=== PATIENT | male | born 1995 | race Two or more races ===

== ENCOUNTER 2016-09-01 11:50 | Emergency (ER) | payer OTHER ==
[2016-09-01] MEDS ORDERED: NS 1,000 ML IV ONE ×2 (12:13→18:04)
[2016-09-01] MEDS ORDERED: ONDANSETRON 4 MG/2 ML VIAL IVP ONE (12:13)
[2016-09-01 13:09] LABS: % IMMATURE GRANULYOCYTES 0.3 % (0.0-1.1); ABSOLUTE IMMATURE GRANULOCYTES 0.03 10^3/uL (0.00-0.10); ADD DIFF? NO; ADD MORPH? YES; ADD SCAN? NO; ATYPICAL LYMPHOCYTE FLAG 0 (0-99); FRAGMENT RBC FLAG 60 (0-99); HEMATOCRIT 29.5 % (40.0-51.0); HEMOGLOBIN 8.9 g/dL (13.7-17.5); LEFT SHIFT FLG 0 (0-99); LIPEMIA HEMOLYSIS FLAG 80 (0-99); MEAN CELL HEMOGLOBIN 20.9 pg (27.9-34.1); MEAN CELL HEMOGLOBIN CONCENTR. 30.2 g/dL (32.4-36.7); PLATELET CLUMPS FLAG 0 (0-99); PLATELET COUNT 682 10^3/uL (150-400); RED BLOOD CELL COUNT 4.25 10^6/uL (4.40-6.38); RED CELL DISTRIBUTION WIDTH 19.7 % (11.5-15.2)
[2016-09-01 13:18] LABS: MEAN CELL VOLUME 69.4 fL (81.5-99.8)
[2016-09-01 13:22] LABS: ANION GAP 17 mEq/L (8-16); CALCIUM 9.1 mg/dL (8.5-10.4); CARBON DIOXIDE 23 mEq/l (22-31); CHLORIDE 101 mEq/L (97-110); CREATININE 0.5 mg/dL (0.7-1.3); GLOMERULAR FILTRATION RATE > 60; GLUCOSE 83 mg/dL (70-100); SODIUM 141 mEq/L (134-144)
[2016-09-01 14:01] LABS: ELLIPTOCYTES 1+; HYPOCHROMIA 2+; MICROCYTES 1+; PLATELET ESTIMATE INCREASED (ADEQ); SCHISTOCYTES 1+; TARGET CELLS 1+
--- NOTE | 2016-09-01 14:24 | UCPHY ---
H & P Time Seen by Provider: 09/01/16 14:07 Patient Type: Established HPI/ROS: CHIEF COMPLAINT: Lightheaded, weakness, shaking HISTORY OF PRESENT ILLNESS: 21-year-old male presents to the urgent care with mother and father feeling lightheaded and very shaky. The patient has a history of having a total colectomy July 23, [address] Pedroza at [facility] in [place]. The patient was just discharged less than 1 week ago from [facility] and was seen most recently by his surgeon yesterday. He he had cultures taken. He had blood drawn. He presents to urgent care feeling very weak and shaky. He did not have a syncopal episode. He denies chest pain or difficulty breathing. The patient has a history of ulcerative colitis and has been on prednisone over the last 1 year. He subsequently had the total colectomy because he was unable to wean from the prednisone. He stop the prednisone 1 week ago and then apparently started having recurring symptoms and so it is a restarted the prednisone at 5 mg and he has been taking this for last 2 days. He is currently on antibiotics, Flagyl 500 mg three times daily and Rocephin 2 g q.day. He has home health. He had Clostridium difficile 1 year ago. The mother reports that his ileostomy bag has been feeling up with a lot of liquid and she is very concerned that he is now dehydrated. He has been urinating. No burning associated with urination. He did also have an abscess 3 weeks ago and had a recent CT scan on Saturday showing the abscess had resolved. REVIEW OF SYSTEMS: Constitutional: No fever, no chills. Eyes: No double or blurry vision. ENT: No sore throat. Respiratory: No cough, no shortness of breath. Cardiac: No chest pain. Gastrointestinal: Abdominal pain, no vomiting. Large output ileostomy bag. Genitourinary: No dysuria. Musculoskeletal: No neck or back pain. Skin: No rashes. Neurological: headache. Past Medical/Surgical History: Ulcerative colitis, history of total colectomy July 23, 2016 Social History: Single Smoking Status: Never smoked Physical Exam: General Appearance: Alert, no distress. Initial vital signs 37.2, heart rate 128, 110/78 Eyes: Pupils equal and round. Extraocular motions are all intact. ENT: Mouth: Mucous membranes moist. Respiratory: No wheezing, rhonchi, or rales, lungs are clear to auscultation. Cardiovascular: Regular rate and rhythm. Gastrointestinal: Healing surgical midline incision noted to have some dehiscence at the most inferior aspect over the suprapubic area. There is no drainage from the wound. Ileostomy bag noted the right lower quadrant. Mild diffuse tenderness with palpation. Normal bowel sounds. Abdomen is soft. Neurological: Alert and oriented x 3, cranial nerves II through XII grossly intact Skin: Warm and dry, no rashes. Musculoskeletal: Nontender to palpate along the cervical, thoracic or lumbar spine. Neck is supple. Extremities: Full range of motion and no peripheral edema. Psychiatric: Patient is oriented X 3, there is no agitation. Constitutional: Initial Vital Signs Temperature (C) 37.2 C 09/01/16 12:00 Heart Rate 128 H 09/01/16 12:00 Respiratory Rate 16 09/01/16 12:00 Blood Pressure 110/78 09/01/16 12:00 O2 Sat (%) 99 09/01/16 12:00 O2 Delivery Mode Room Air Allergies/Adverse Reactions: infliximab [From Remicade] Allergy (Severe, Verified 09/01/16 12:06) SOB, Rash sertraline Allergy (Severe, Verified 09/01/16 12:06) Abdominal Pain adalimumab [From Humira] Allergy (Intermediate, Verified 09/01/16 12:06) Fever mesalamine Allergy (Intermediate, Verified 09/01/16 12:06) Fever, RASH Sulfa (Sulfonamide Antibiotics) Allergy (Intermediate, Verified 09/01/16 12:06) Rash Home Medications: Medication Instructions Recorded Aspirin 09/01/16 Ativan 09/01/16 Ceftriaxone 09/01/16 Flagyl 09/01/16 Flexeril 09/01/16 Ibuprofen 09/01/16 Ondansetron 09/01/16 Oxycodone HCl 09/01/16 Prednisone 09/01/16 Remeron 09/01/16 VITAMIN D 09/01/16 Vitamin B Complex 09/01/16 Medical Decision Making ED Course/Re-evaluation: 21-year-old male with a history of colectomy presents with the large output to ileostomy bag with concerns about possible dehydration. The patient is subjective be feeling very shaky and lightheaded. The patient was in urgent care for several hours. He would received IV normal saline and upon discharge the patient did not feel much different. His heart rate remained 115-120. Laboratory studies reveal white blood cell count of 9.7. The patient is chronically anemic. Chemistries are within normal limits. Specifically normal BUN and creatinine of 11 and 0.5. Influenza was negative. Because the patient continued to feel very shaky and had not improved much after receiving IV normal saline and having some juice and some crackers to eat. I recommended admission to the hospital. The mother verbalized understanding and agreed. The patient will be admitted to Dr. Obregon at [facility] all in [place]. He will be admitted to bed #665. His mother requests to take the patient by private vehicle and not by ambulance. Differential Diagnosis: Including but not limited to dehydration, sepsis, bowel obstruction, infectious diarrhea - Data Points Laboratory Results: Laboratory Results 09/01/16 12:51 09/01/16 12:51 09/01/16 09/01/16 09/01/16 16:17 15:35 12:51 WBC RBC Hgb Hct MCV MCH MCHC RDW Plt Count MPV Neut % (Auto) Lymph % (Auto) [place] % (Auto) Eos % (Auto) Baso % (Auto) Nucleat RBC Rel Count Absolute Neuts (auto) Absolute Lymphs (auto) Absolute Monos (auto) Absolute Eos (auto) Absolute Basos (auto) Absolute Nucleated RBC Immature Gran % Immature Gran # Platelet Estimate Hypochromasia Microcytic Cells Target Cells Elliptocytes Schistocytes Smear Review By Sodium 141 mEq/L mEq/L (134-144) Potassium 4.0 mEq/L mEq/L (3.5-5.2) Chloride 101 mEq/L mEq/L (97-110) Carbon Dioxide 23 mEq/l mEq/l (22-31) Anion Gap 17 mEq/L H mEq/L (8-16) BUN 11 mg/dL mg/dL (7-23) Creatinine 0.5 mg/dL L mg/dL (0.7-1.3) Estimated GFR > 60 Glucose 83 mg/dL mg/dL (70-100) Calcium 9.1 mg/dL mg/dL (8.5-10.4) Urine Color YELLOW Urine Appearance CLOUDY Urine pH 8.0 H (5.0-7.5) Ur Specific [place] 1.015 (1.002-1.030) Urine Protein NEGATIVE (NEGATIVE) Urine Ketones NEGATIVE (NEGATIVE) Urine Blood NEGATIVE (NEGATIVE) Urine Nitrate NEGATIVE (NEGATIVE) Urine Bilirubin NEGATIVE (NEGATIVE) Urine Urobilinogen 0.2 EU EU (0.2-1.0) Ur Leukocyte Esterase NEGATIVE (NEGATIVE) Urine RBC NONE SEEN /hpf /hpf (0-3) Urine WBC NONE SEEN /hpf /hpf (0-3) Ur Epithelial Cells TRACE /lpf /lpf (NONE-1+) Amorphous Sediment 3+ /hpf H /hpf (NONE-1+) Urine Mucus TRACE /lpf /lpf (NONE-1+) Urine Glucose NEGATIVE (NEGATIVE) Influenza Typ A,B (DFA) NEGATIVE FOR FLU (NEGATIVE) 09/01/16 12:51 WBC 9.72 10^3/uL H 10^3/uL (3.80-9.50) RBC 4.25 10^6/uL L 10^6/uL (4.40-6.38) Hgb 8.9 g/dL L g/dL (13.7-17.5) Hct 29.5 % L % (40.0-51.0) MCV 69.4 fL L fL (81.5-99.8) MCH 20.9 pg L pg (27.9-34.1) MCHC 30.2 g/dL L g/dL (32.4-36.7) RDW 19.7 % H % (11.5-15.2) Plt Count 682 10^3/uL H 10^3/uL (150-400) MPV 9.0 fL fL (8.7-11.7) Neut % (Auto) 75.3 % H % (39.3-74.2) Lymph % (Auto) 10.0 % L % (15.0-45.0) [place] % (Auto) 10.8 % % (4.5-13.0) Eos % (Auto) 2.9 % % (0.6-7.6) Baso % (Auto) 0.7 % % (0.3-1.7) Nucleat RBC Rel Count 0.0 % % (0.0-0.2) Absolute Neuts (auto) 7.32 10^3/uL H 10^3/uL (1.70-6.50) Absolute Lymphs (auto) 0.97 10^3/uL L 10^3/uL (1.00-3.00) Absolute Monos (auto) 1.05 10^3/uL H 10^3/uL (0.30-0.80) Absolute Eos (auto) 0.28 10^3/uL 10^3/uL (0.03-0.40) Absolute Basos (auto) 0.07 10^3/uL 10^3/uL (0.02-0.10) Absolute Nucleated RBC 0.00 10^3/uL 10^3/uL (0-0.01) Immature Gran % 0.3 % % (0.0-1.1) Immature Gran # 0.03 10^3/uL 10^3/uL (0.00-0.10) Platelet Estimate INCREASED H (ADEQ) Hypochromasia 2+ H Microcytic Cells 1+ H Target Cells 1+ H Elliptocytes 1+ H Schistocytes 1+ H Smear Review By Pending Sodium Potassium Chloride Carbon Dioxide Anion Gap BUN Creatinine Estimated GFR Glucose Calcium Urine Color Urine Appearance Urine pH Ur Specific [place] Urine Protein Urine Ketones Urine Blood Urine Nitrate Urine Bilirubin Urine Urobilinogen Ur Leukocyte Esterase Urine RBC Urine WBC Ur Epithelial Cells Amorphous Sediment Urine Mucus Urine Glucose Influenza Typ A,B (DFA) Medications Given: Discontinued Medications Sodium Chloride (Ns) 1,000 mls @ 0 mls/hr IV EDNOW ONE PRN Reason: As Directed Stop: 09/01/16 12:14 Last Admin: 09/01/16 12:45 Dose: 1,000 mls Ceftriaxone Sodium 2 gm/ (Sodium Chloride) 100 mls @ 200 mls/hr IV EDNOW ONE PRN Reason: Protocol Stop: 09/01/16 17:44 Last Admin: 09/01/16 17:45 Dose: 100 mls Sodium Chloride (Ns) 1,000 mls @ 0 mls/hr IV ONCE ONE PRN Reason: Wide Open Stop: 09/01/16 18:05 Last Admin: 09/01/16 12:55 Dose: 1,000 mls Metronidazole (Flagyl) 500 mg PO EDNOW ONE PRN Reason: Protocol Stop: 09/01/16 17:15 Last Admin: 09/01/16 17:40 Dose: 500 mg Ondansetron HCl (Zofran) 4 mg IVP EDNOW ONE Stop: 09/01/16 12:14 Last Admin: 09/01/16 12:45 Dose: 4 mg Departure - Departure Disposition: Acute Care Hospital Not [facility] Clinical Impression: Lightheaded, Dehydration, History of total colectomy Condition: Good Instructions: Dehydration (ED) Additional Instructions: Go directly to [facility]. Your being admitted to [facility] to Dr. Obregon to bed #665 Referrals: BRITNI LANDA [Primary Care Provider] - As per Instructions - PQRS PQRS Measurement: Not applicable
[2016-09-01 15:10] VITALS: RESP 20
[2016-09-01 15:40] LABS: COLOR YELLOW; LEUKOCYTE ESTERASE,URINE NEGATIVE (NEGATIVE); NITRITE,URINE NEGATIVE (NEGATIVE)
[2016-09-01 15:48] LABS: AMORPHOUS 3+ /hpf (NONE-1+); MUCUS TRACE /lpf (NONE-1+); RBC,URINE NONE SEEN /hpf (0-3); WBC,URINE NONE SEEN /hpf (0-3)
[2016-09-01] MEDS ORDERED: metroNIDAZOLE 500 MG TAB PO ONE (17:14)
[2016-09-01 19:09] VITALS: BP 121/78; PULSE 106; TEMP 99.3; O2SAT 97
== END 2016-09-01 18:30 | disposition short-term general hospital (02) ==
LOC: CED 11:50
DX: R42 Dizziness and giddiness (principal); E86.0 Dehydration; R53.1 Weakness; R25.1 Tremor, unspecified; Z90.49 Acquired absence of other specified parts of digestive tract
CPT/HCPCS: 80048-PO; 81003-PO; 81015-PO; 85025-PO; 87400-PO; 96361-PO; 96365-PO; 96375-PO; 99215-PO; G0463-PO; J0696; J2405

== ENCOUNTER → 2016-10-29 | Outpatient (CLI) | payer OTHER ==
[~2016-10-29] MED LIST: IOPAMIDOL (ISOVUE-300) 100 ML BTL ONE
== END ==
LOC: CIMAGING 12:45
PROVIDERS: ATTEND Physician Assistant
DX: K50.118 Crohn's disease of large intestine with other complication (principal); Z90.49 Acquired absence of other specified parts of digestive tract; Z93.2 Ileostomy status; Z93.3 Colostomy status
CPT/HCPCS: Q9967